=== PATIENT | female | born 2000 | race Caucasian/White ===

== ENCOUNTER → 2021-08-06 13:45 | Observation (INO) ==
[2021-08-06 11:33] LABS: Bilirubin,Urine Negative (Negative); Blood,Urine Negative (Negative); Clarity,Urine Clear (Clear); Color,Urine Light-Yellow (Yellow); Glucose,Urine (UA) Normal (Normal); Ketones,Urine Negative (Negative); Leukocyte Esterase,Urine Negative (Negative); Nitrite,Urine Negative (Negative); Protein,Urine Trace mg/dL (Neg-Trace); Specific Gravity,Urine 1.025 (1.010-1.025); Urobilinogen,Urine Normal (Normal)
[~2021-08-06 13:45] MED LIST: Ringers Solution, Lactated 1,000 ML IVC SCH
== END | disposition home or self-care (01) ==
LOC: 1NENULAB
PROVIDERS: ADMIT Student in an Organized Health Care Education/Training Program; ATTEND Student in an Organized Health Care Education/Training Program

== ENCOUNTER → 2021-09-06 17:03 | Observation (INO) | END | disposition home or self-care (01) | LOC: 1NENULAB | PROVIDERS: ADMIT Obstetrics & Gynecology; ATTEND Obstetrics & Gynecology ==

== ENCOUNTER 2021-12-07 00:04 | Inpatient (IN) ==
[2021-12-07] MEDS ORDERED: miSOPROStoL 25 MCG TABLET PO PRN (00:54)
[2021-12-07] MEDS ORDERED: Famotidine 20 MG/2 ML VIAL IVP PRN (00:54)
[2021-12-07] MEDS ORDERED: Metoclopramide 10 MG/2 ML VIAL IVP PRN ×2 (00:54→10:59)
[2021-12-07] MEDS ORDERED: Naloxone 0.4 MG/ML INJ IVP PRN ×2 (00:54→10:59)
[2021-12-07 01:16] LABS: Basophils # 0.1 K/mcL (0.0-0.2); Basophils % 0.5 %; Eosinophils # 0.2 K/mcL (0.0-0.6); Eosinophils % 1.3 %; Hematocrit 38.6 % (35.3-44.9); Hemoglobin 13.5 g/dL (11.5-15.4); Immature Granulocytes % 0.9 % (0-4); Lymphocytes # 2.4 K/mcL (0.6-4.6); Lymphocytes % 13.8 %; Mean Corpuscular Hemoglobin 31.6 pg (28.0-33.3); Mean Corpuscular Volume 90.4 fL (83.0-100.0); Monocytes # 1.4 K/mcL (0.0-1.3); Monocytes % 8.4 %; Neutrophils # 12.8 K/mcL (1.6-8.9); Platelet Count 235 K/mcL (140-400); Red Blood Count 4.27 M/mcL (3.82-4.97); Red Cell Distribution Width 13.9 % (11.5-14.5); Segmented Neutrophils % 75.1 %
[2021-12-07 01:28] LABS: Amphetamine Screen,Urine Negative ng/mL (Cutoff=1000); Barbiturate Screen,Urine Negative ng/mL (Cutoff=200); Benzodiazepines Screen,Urine Negative ng/mL (Cutoff=200); Cannabinoid Screen,Urine Negative ng/mL (Cutoff = 50); Cocaine Screen,Urine Negative ng/mL (Cutoff= 300); Opiate Screen,Urine Negative ng/mL (Cutoff=300); Phencyclidine Screen,Urine Negative ng/mL (Cutoff=25)
[2021-12-07 01:56] LABS: Influenza A PCR Negative (Negative); Influenza B PCR Negative (Negative); Resp. Syncytial Virus PCR Negative (Negative)
[2021-12-07 01:57] LABS: SARS-CoV-2 by PCR (In House) Negative (Negative)
[2021-12-07] MEDS ORDERED: Ringers Solution, Lactated 1,000 ML ONE (02:06)
[2021-12-07] MEDS ORDERED: EPHEDrine 50 MG/ML VIAL IVP PRN (02:07)
[2021-12-07] MEDS ORDERED: Epidural Premix (fent/bupiv) 110 ML EP SCH (02:15)
[2021-12-07] MEDS ORDERED: Ringers Solution, Lactated 1,000 ML IVC SCH (03:00)
[2021-12-07] MEDS ORDERED: Oxytocin 20 units/ LR 1000 mL 20 UNIT/1,000 ML BAG IVC ONE (05:51)
[2021-12-07] MEDS ORDERED: *HR* HYDROMORPHONE 2 MG/ML VIAL ONE (05:53)
[2021-12-07] MEDS ORDERED: Clindamycin 900 MG/50 ML 900 MG/50 ML IV.SOLN IVPB ONE (05:56)
[2021-12-07] MEDS ORDERED: Gentamicin 130 MG in 0.9 % Sodium Chloride 100 ML IVPB ONE (05:57)
[2021-12-07] MEDS ORDERED: EPHEDrine 50 MG/ML VIAL ONE (06:22)
[2021-12-07] MEDS ORDERED: *HR* Midazolam HCl 2 MG/2 ML VIAL ONE (06:43)
[2021-12-07] MEDS ORDERED: *HR* Oxytocin 10 UNIT/ML VIAL ONE (06:51)
[2021-12-07] MEDS ORDERED: Ondansetron 4 MG/2 ML VIAL ONE (06:59)
[2021-12-07] MEDS ORDERED: *HR* HYDROmorphone PF 0.5 MG/0.5 ML SYRINGE IVP PRN (07:21)
[2021-12-07] MEDS ORDERED: Ondansetron 4 MG/2 ML VIAL IVP PRN ×2 (07:21→10:59)
[2021-12-07] MEDS ORDERED: Acetaminophen IV 1,000 MG/100 ML BAG IVPB PRN (07:21)
[2021-12-07] MEDS ORDERED: Promethazine 6.25 MG in Water for inj. (sterile) 20 ML IVPB PRN (07:21)
[2021-12-07] MEDS ORDERED: Simethicone 80 MG TAB.CHEW PO PRN (10:59)
[2021-12-07] MEDS ORDERED: Prenatal Vit/FA 1 EACH TABLET PO SCH (10:59)
[2021-12-07] MEDS ORDERED: 0.9 % Sodium Chloride 1,000 ML IVC SCH (10:59)
[2021-12-07] MEDS ORDERED: Oxytocin 20 units/ LR 1000 mL 20 UNIT/1,000 ML BAG IVC SCH (10:59)
[2021-12-07] MEDS ORDERED: *HR* OxyCODONE Immed Rel 5 MG TABLET PO PRN (10:59)
[2021-12-07] MEDS ORDERED: Rho Immune Globulin 1,500 UNIT SYRINGE IM ONE (10:59)
[2021-12-07] MEDS: Ibuprofen 600 MG TABLET PO SCH (20:35)
[2021-12-07] MEDS: Acetaminophen 325 MG TABLET PO SCH (20:45)
[2021-12-07] MEDS ORDERED: *HR* Enoxaparin 60 MG/0.6 ML SYRINGE SQ SCH (23:00)
[2021-12-08] MEDS ORDERED: *HR* Enoxaparin 60 MG/0.6 ML SYRINGE SQ SCH (00:15)
[2021-12-08] MEDS ORDERED: hydrOXYzine pamoate 25 MG CAPSULE PO PRN (01:29)
[2021-12-08] MEDS: Ibuprofen 600 MG TABLET PO SCH ×2 (02:23→08:55)
[2021-12-08] MEDS: Acetaminophen 325 MG TABLET PO SCH ×2 (02:23→08:56)
[2021-12-08 04:39] VITALS: O2SAT 98
[2021-12-08 05:01] LABS: Basophils # 0.1 K/mcL (0.0-0.2); Basophils % 0.4 %; Eosinophils # 0.1 K/mcL (0.0-0.6); Eosinophils % 0.8 %; Hematocrit 34.6 % (35.3-44.9); Immature Granulocytes % 1.1 % (0-4); Lymphocytes # 2.6 K/mcL (0.6-4.6); Lymphocytes % 14.3 %; Mean Corpuscular HGB Conc 33.8 g/dL (31.6-35.5); Mean Corpuscular Hemoglobin 30.9 pg (28.0-33.3); Mean Corpuscular Volume 91.3 fL (83.0-100.0); Monocytes # 1.5 K/mcL (0.0-1.3); Monocytes % 8.1 %; Neutrophils # 13.5 K/mcL (1.6-8.9); Platelet Count 212 K/mcL (140-400); Red Blood Count 3.79 M/mcL (3.82-4.97); Red Cell Distribution Width 13.8 % (11.5-14.5); Segmented Neutrophils % 75.3 %
[2021-12-08 05:04] LABS: Hemoglobin 11.7 g/dL (11.5-15.4)
[2021-12-08 07:05] VITALS: BP 115/65; PULSE 110; TEMP 98
== END 2021-12-08 10:06 | disposition home or self-care (01) | DRG 788 ==
LOC: 1NENULAB 00:04 → 1NENUOBS 11:25
PROVIDERS: ADMIT Student in an Organized Health Care Education/Training Program; ATTEND Student in an Organized Health Care Education/Training Program